=== PATIENT | male | born 1990 ===

== ENCOUNTER 2022-04-30 15:59 | Emergency (ER) | payer SELFPAY ==
[2022-04-30 16:39] VITALS: BP 121/72; PULSE 63; RESP 16; TEMP 36.4; O2SAT 100
--- NOTE | 2022-04-30 16:43 | PC.NURSE ---
pt texting under blanket.
--- NOTE | 2022-04-30 19:56 | PC.NURSE ---
Addendum entered by Benjy Martinez RN 04/30/22 19:58: without being seen by provider Original Note: pt left without being seen at this time. pt states this is ridiculous I've been waiting for four hours. pt IV removed before pt left.
== END 2022-04-30 19:56 | disposition left against medical advice (07) ==
LOC: ANHED 20:08
DX: G43.909 Migraine, unspecified, not intractable, without status migrainosus (principal)
CPT/HCPCS: 99199